=== PATIENT | female | born 1950 | race Caucasian/White ===

== ENCOUNTER 2023-04-20 10:02 | Outpatient (CLI) | payer MEDICARE, BC, SELFPAY ==
--- NOTE | 2023-04-20 11:30 | W.ANESCHARGE ---
Anesthesia Charges Start Date/Time Anesthesia Start Date: 04/20/23 Anesthesia Start Time: 11:15 Stop Date/Time Anesthesia Stop Date: 04/20/23 Anesthesia Stop Time: 11:35 Summary Extremes of Age - Over 70 or under 1: MDA
--- NOTE | 2023-04-20 11:36 | W.ANESCHARGE ---
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
== END 2023-04-20 10:03 | disposition home or self-care (01) ==
LOC: OP CLINIC 10:03
PROVIDERS: PCP Family Medicine; Visit Provider Internal Medicine Gastroenterology
DX: Z12.11 Encounter for screening for malignant neoplasm of colon (principal); K63.5 Polyp of colon; K64.8 Other hemorrhoids; K57.30 Diverticulosis of large intestine without perforation or abscess without bleeding; Z86.010 Personal history of colon polyps
CPT/HCPCS: 00811; 45385; 88305; 99100; J2704